=== PATIENT | male | born 1945 | race Hispanic/Latino ===

== ENCOUNTER 2021-02-26 12:44 | Emergency (ER) | payer OTHER, MEDICARE ==
[~2021-02-26] VITALS: Ht 167.6 cm; Wt 101.6 kg
[~2021-02-26 12:44] MED LIST: ASPIRIN325 MG PO; CORDARONE200 MG PO; FISH OIL500 M1 PO; LIPITOR10 MG PO; NITROSTAT0.4 MG SL; OMEPRAZOLE20 MG PO; RENVELA800 MG PO; SODIUM BICARBO650 MG PO; TUMS300 MG PO
[2021-02-26] MEDS ORDERED: TRAMADOL HCL 50 MG TAB PO NR (13:00)
[2021-02-26] MEDS ORDERED: ACETAMINOPHEN-1 EAC3 PO (13:47)
[2021-02-26] MEDS ORDERED: TRAMADOL HCL 50 MG TAB ONE (14:00)
== END 2021-02-26 14:17 | disposition home or self-care (01) ==
LOC: FSED 12:52
DX: M25.561 Pain in right knee (principal); M25.572 Pain in left ankle and joints of left foot; W01.0XXA Fall on same level from slipping, tripping and stumbling without subsequent striking against object, initial encounter
CPT/HCPCS: 99283

== ENCOUNTER 2023-02-03 11:06 | Inpatient (IN) | payer MEDICARE, OTHER ==
[~2023-02-03] VITALS: Ht 167.6 cm; Wt 101.3 kg
[~2023-02-03 11:06] MED LIST changes: +ACETAMINOPHEN-1 EAC3 PO
[2023-02-03 11:35] LABS: BASOPHILS % 0.4 % (0.0-1.0); EOSINOPHILS # (AUTO) 0.1 (0.0-0.4); EOSINOPHILS % 1.4 % (0.0-6.0); HEMOGLOBIN 11.8 g/dL (14.0-18.0); LYMPHOCYTES # (AUTO) 0.8 (1.0-3.2); LYMPHOCYTES % 11.7 % (18.0-39.1); MEAN CORPUSCULAR HEMOGLOBIN 28.9 pg (28-32); MEAN CORPUSCULAR HGB CONC 33.7 g/dL (31-35); MEAN CORPUSCULAR VOLUME 85.8 fL (81-99); MONOCYTES # (AUTO) 0.6 (0.2-0.8); MONOCYTES % 7.6 % (4.4-11.3); NEUTROPHILS # (AUTO) 5.7 (2.1-6.9); NEUTROPHILS % 78.5 % (38.7-80.0); PLATELET COUNT 260 x10e3/uL (140-360); RED BLOOD COUNT 4.08 x10e6/uL (4.3-5.7); RED CELL DISTRIBUTION WIDTH 13.3 % (11.7-14.4)
[2023-02-03 11:56] LABS: ALBUMIN 2.4 g/dL (3.5-5.0); ALBUMIN/GLOBULIN RATIO 0.7 (0.8-2.0); ANION GAP 15.8 mmol/L (8-16); CALCIUM 7.8 mg/dL (8.4-10.2); CREATININE, SERUM 1.24 mg/dL (0.72-1.25)
[2023-02-03 11:59] LABS: POTASSIUM 2.8 mmol/L (3.5-5.1)
[2023-02-03] MEDS ORDERED: MAGNESIUM SULFATE 2GM/50ML 50 ML IV ONE (13:00)
[2023-02-03] MEDS: LACTATED RINGER'S 1,000 ML IV ONE ×2 (13:46→13:56)
[2023-02-03 14:45] VITALS: BP 143/74; PULSE 57; RESP 17; TEMP 98.9; O2SAT 94
[2023-02-03 15:00] VITALS: BP 143/74; PULSE 57; RESP 17; TEMP 98.9; O2SAT 94
[2023-02-03 15:57] VITALS: BP 143/74; PULSE 57; RESP 17; TEMP 98.9; O2SAT 94
[2023-02-03] MEDS: POTASSIUM CHLORIDE 10MEQ/100ML 200 ML IV SCH (16:44)
[2023-02-03] MEDS: SODIUM CHLORIDE 0.9% 1000ML 1,000 ML IV SCH (17:07)
[2023-02-03] MEDS ORDERED: MYCOPHENOLATE250 MG PO (18:35)
[2023-02-03] MEDS ORDERED: VITAMIN D350 MCG (18:35)
[2023-02-03] MEDS ORDERED: NIFEDIPINE ER30 M1 PO (18:35)
[2023-02-03] MEDS ORDERED: METOPROLOL SUCC50 MG PO (18:35)
[2023-02-03] MEDS ORDERED: TACROLIMUS1 MG PO ×2 (18:35)
[2023-02-03] MEDS ORDERED: NOVOLIN R100 UNIT/1 (18:35)
[2023-02-03] MEDS ORDERED: HYDROCHLOROTHIA25 MG (18:35)
[2023-02-03 20:52] VITALS: BP 130/65; PULSE 57; RESP 18; TEMP 97.8; O2SAT 94
[2023-02-03 22:00] VITALS: BP 130/65; PULSE 57; RESP 18; TEMP 97.8; O2SAT 98
[2023-02-03] MEDS: MYCOPHENOLATE MOFETIL 250 MG CAP PO SCH (23:33)
[2023-02-03] MEDS: TACROLIMUS 1 MG CAP PO SCH (23:33)
[2023-02-04] VITALS (8 sets, daily range): BP systolic 130–167; BP diastolic 60–69; PULSE 55–63; RESP 18–24; TEMP 97.4–97.8; O2SAT 94–99
[2023-02-04] MEDS: POTASSIUM CHLORIDE 10MEQ/100ML 100 ML IV SCH ×4 (04:00→09:46)
[2023-02-04] MEDS: POTASSIUM CHLORIDE 10MEQ/100ML 200 ML IV SCH ×2 (04:36→06:55)
[2023-02-04] MEDS: SODIUM CHLORIDE 0.9% 1000ML 1,000 ML IV SCH (04:44)
[2023-02-04] MEDS ORDERED: TACROLIMUS 0.5 MG CAP PO SCH (09:00)
[2023-02-04 09:15] LABS: BASOPHILS % 0.3 % (0.0-1.0); EOSINOPHILS # (AUTO) 0.1 (0.0-0.4); EOSINOPHILS % 1.1 % (0.0-6.0); HEMATOCRIT 33.3 % (38.2-49.6); HEMOGLOBIN 11.2 g/dL (14.0-18.0); LYMPHOCYTES # (AUTO) 0.6 (1.0-3.2); LYMPHOCYTES % 7.6 % (18.0-39.1); MEAN CORPUSCULAR HEMOGLOBIN 28.6 pg (28-32); MEAN CORPUSCULAR HGB CONC 33.6 g/dL (31-35); MEAN CORPUSCULAR VOLUME 84.9 fL (81-99); MONOCYTES # (AUTO) 0.5 (0.2-0.8); MONOCYTES % 7.2 % (4.4-11.3); NEUTROPHILS # (AUTO) 6.3 (2.1-6.9); NEUTROPHILS % 83.3 % (38.7-80.0); PLATELET COUNT 199 x10e3/uL (140-360); RED BLOOD COUNT 3.92 x10e6/uL (4.3-5.7)
[2023-02-04 09:42] LABS: MAGNESIUM 1.8 MG/DL (1.3-2.1); PHOSPHORUS 3.2 MG/DL (2.3-4.7)
[2023-02-04 09:43] LABS: ANION GAP 16.4 mmol/L (8-16); CALCIUM 7.6 mg/dL (8.4-10.2); CREATININE, SERUM 0.94 mg/dL (0.72-1.25); POTASSIUM 3.4 mmol/L (3.5-5.1)
[2023-02-04] MEDS: MYCOPHENOLATE MOFETIL 250 MG CAP PO SCH ×2 (09:45→21:15)
[2023-02-04] MEDS: AMIODARONE HCL 200 MG TAB PO SCH (09:45)
[2023-02-04 10:05] LABS: THYROID STIMULATING HORMONE 0.577 uIU/mL (0.350-4.940)
[2023-02-04] MEDS ORDERED: KCL 20MEQ/.9 SOD CHL 1,000 ML IV ONE (11:00)
[2023-02-04] MEDS: TACROLIMUS 0.5 MG CAP PO SCH (11:39)
[2023-02-04] MEDS: SODIUM BICARBONATE 650 MG TAB PO SCH ×2 (11:39→16:36)
[2023-02-04] MEDS: ACETAMINOPHEN 325 MG TAB PO PRN (21:14)
[2023-02-04] MEDS: TACROLIMUS 1 MG CAP PO SCH (21:15)
[2023-02-05] VITALS (7 sets, daily range): BP systolic 119–171; BP diastolic 48–99; PULSE 58–69; RESP 17–24; TEMP 96–97.8; O2SAT 96–100
[2023-02-05 06:11] LABS: BASOPHILS % 0.1 % (0.0-1.0); EOSINOPHILS # (AUTO) 0.2 (0.0-0.4); EOSINOPHILS % 2.3 % (0.0-6.0); HEMATOCRIT 33.9 % (38.2-49.6); HEMOGLOBIN 11.4 g/dL (14.0-18.0); LYMPHOCYTES # (AUTO) 0.6 (1.0-3.2); LYMPHOCYTES % 8.5 % (18.0-39.1); MEAN CORPUSCULAR HEMOGLOBIN 28.8 pg (28-32); MEAN CORPUSCULAR HGB CONC 33.6 g/dL (31-35); MEAN CORPUSCULAR VOLUME 85.6 fL (81-99); MONOCYTES # (AUTO) 0.6 (0.2-0.8); MONOCYTES % 8.4 % (4.4-11.3); NEUTROPHILS # (AUTO) 5.6 (2.1-6.9); NEUTROPHILS % 80.1 % (38.7-80.0); PLATELET COUNT 212 x10e3/uL (140-360); RED BLOOD COUNT 3.96 x10e6/uL (4.3-5.7); RED CELL DISTRIBUTION WIDTH 13.1 % (11.7-14.4)
[2023-02-05 06:34] LABS: ANION GAP 13.5 mmol/L (8-16); CALCIUM 7.6 mg/dL (8.4-10.2); CREATININE, SERUM 0.87 mg/dL (0.72-1.25); POTASSIUM 3.5 mmol/L (3.5-5.1)
[2023-02-05 07:01] LABS: MAGNESIUM 1.9 MG/DL (1.3-2.1); PHOSPHORUS 2.8 MG/DL (2.3-4.7)
[2023-02-05] MEDS: SODIUM BICARBONATE 650 MG TAB PO SCH ×2 (08:18→17:03)
[2023-02-05] MEDS: TACROLIMUS 0.5 MG CAP PO SCH (08:18)
[2023-02-05] MEDS: MYCOPHENOLATE MOFETIL 250 MG CAP PO SCH ×2 (08:18→20:27)
[2023-02-05] MEDS: AMIODARONE HCL 200 MG TAB PO SCH (08:18)
[2023-02-05] MEDS ORDERED: FUROSEMIDE 20 MG TAB PO ONE (11:30)
[2023-02-05] MEDS ORDERED: POTASSIUM CHLORIDE 20 MEQ TAB CR PO ONE (11:30)
[2023-02-05] MEDS: SODIUM CHLORIDE 1 GM TAB PO SCH ×2 (13:13→20:27)
[2023-02-05] MEDS ORDERED: BENZONATATE 100 MG CAP PO PRN (13:45)
[2023-02-05] MEDS: BENZONATATE 100 MG CAP PO SCH ×2 (14:07→20:27)
[2023-02-05] MEDS: TACROLIMUS 1 MG CAP PO SCH (20:27)
[2023-02-05] MEDS ORDERED: ONDANSETRON HCL INJ 2MG/ML 2ML 2 MG/ML VIAL IV PRN (23:45)
[2023-02-06] MEDS: BUDESONIDE 0.5MG/2 ML NEB INH SCH (06:30)
[2023-02-06 08:15] VITALS: BP 182/71; PULSE 72; RESP 18; TEMP 98.1; O2SAT 97
[2023-02-06] MEDS: SODIUM BICARBONATE 650 MG TAB PO SCH ×2 (09:58→16:00)
[2023-02-06] MEDS: BENZONATATE 100 MG CAP PO SCH ×3 (09:58→21:16)
[2023-02-06] MEDS: SODIUM CHLORIDE 1 GM TAB PO SCH ×2 (09:58→21:16)
[2023-02-06] MEDS: TACROLIMUS 0.5 MG CAP PO SCH (09:58)
[2023-02-06] MEDS: AMIODARONE HCL 200 MG TAB PO SCH (09:58)
[2023-02-06] MEDS: METOPROLOL SUCCINATE 50 MG TAB XL PO SCH (10:59)
[2023-02-06] MEDS: ASPIRIN 81 MG CHEW TAB PO SCH (11:00)
[2023-02-06] MEDS: DOXYCYCLINE HYCLATE TABLET 100 MG TAB PO SCH ×2 (11:00→16:00)
[2023-02-06] MEDS: MYCOPHENOLATE MOFETIL 250 MG CAP PO SCH ×2 (11:00→21:16)
[2023-02-06] MEDS: NIFEDIPINE CR 30 MG TAB PO SCH (11:00)
[2023-02-06] MEDS: METHYLPREDNISOLONE SOD SUCC 40 MG/ML VIAL 1ML IV SCH ×2 (11:01→21:15)
[2023-02-06] MEDS: ATORVASTATIN 40 MG TAB PO SCH (11:01)
[2023-02-06] MEDS: PANTOPRAZOLE SOD 40 MG TABEC PO SCH (11:01)
[2023-02-06 11:41] VITALS: BP 163/68; PULSE 73; RESP 19; TEMP 97.5; O2SAT 98
[2023-02-06] MEDS: ALBUTEROL/IPRATROPIUM 3 ML NEB NEB SCH (13:10)
[2023-02-06 15:49] VITALS: BP 115/59; PULSE 71; RESP 19; TEMP 98; O2SAT 95
[2023-02-06] MEDS: APIXAB 2.5 MG TABLET PO SCH (16:00)
[2023-02-06 20:00] VITALS: BP 144/46; PULSE 64; RESP 18; TEMP 97.5; O2SAT 96
[2023-02-06] MEDS: TACROLIMUS 1 MG CAP PO SCH (21:16)
[2023-02-07] VITALS (11 sets, daily range): BP systolic 98–158; BP diastolic 53–66; PULSE 62–74; RESP 16–22; TEMP 97.8–98.7; O2SAT 95–100
[2023-02-07] MEDS: ALBUTEROL/IPRATROPIUM 3 ML NEB NEB SCH ×4 (02:50→19:30)
[2023-02-07] MEDS: BUDESONIDE 0.5MG/2 ML NEB INH SCH ×2 (07:00→18:59)
[2023-02-07 07:54] LABS: BASOPHILS % 0.2 % (0.0-1.0); HEMATOCRIT 35.4 % (38.2-49.6); HEMOGLOBIN 11.7 g/dL (14.0-18.0); LYMPHOCYTES # (AUTO) 0.4 (1.0-3.2); LYMPHOCYTES % 6.3 % (18.0-39.1); MEAN CORPUSCULAR HEMOGLOBIN 28.9 pg (28-32); MEAN CORPUSCULAR HGB CONC 33.1 g/dL (31-35); MEAN CORPUSCULAR VOLUME 87.4 fL (81-99); MONOCYTES # (AUTO) 0.1 (0.2-0.8); MONOCYTES % 1.8 % (4.4-11.3); NEUTROPHILS % 90.4 % (38.7-80.0); PLATELET COUNT 206 x10e3/uL (140-360); RED BLOOD COUNT 4.05 x10e6/uL (4.3-5.7)
[2023-02-07 08:15] LABS: ANION GAP 13.9 mmol/L (8-16); CALCIUM 7.8 mg/dL (8.4-10.2); CREATININE, SERUM 0.75 mg/dL (0.72-1.25); POTASSIUM 3.9 mmol/L (3.5-5.1)
[2023-02-07] MEDS: ASPIRIN 81 MG CHEW TAB PO SCH (10:13)
[2023-02-07] MEDS: NIFEDIPINE CR 30 MG TAB PO SCH (10:13)
[2023-02-07] MEDS: SODIUM CHLORIDE 1 GM TAB PO SCH ×2 (10:13→20:52)
[2023-02-07] MEDS: BENZONATATE 100 MG CAP PO SCH ×3 (10:14→20:47)
[2023-02-07] MEDS: TACROLIMUS 0.5 MG CAP PO SCH (10:14)
[2023-02-07] MEDS: APIXAB 2.5 MG TABLET PO SCH ×2 (10:14→16:48)
[2023-02-07] MEDS: ATORVASTATIN 40 MG TAB PO SCH (10:14)
[2023-02-07] MEDS: SODIUM BICARBONATE 650 MG TAB PO SCH ×2 (10:14→16:48)
[2023-02-07] MEDS: METOPROLOL SUCCINATE 50 MG TAB XL PO SCH (10:14)
[2023-02-07] MEDS: DOXYCYCLINE HYCLATE TABLET 100 MG TAB PO SCH ×2 (10:15→16:48)
[2023-02-07] MEDS: AMIODARONE HCL 200 MG TAB PO SCH (10:15)
[2023-02-07] MEDS: PANTOPRAZOLE SOD 40 MG TABEC PO SCH (10:15)
[2023-02-07] MEDS: METHYLPREDNISOLONE SOD SUCC 40 MG/ML VIAL 1ML IV SCH ×2 (10:16→20:47)
[2023-02-07 11:16] LABS: LYMPHOCYTES % (MANUAL) 11 % (19-48); MONOCYTES % (MANUAL) 4 % (3.4-9.0); NEUTROPHILS % (MANUAL) 85 % (40-74); PLATELET ESTIMATE ADEQUATE; PLATELET MORPHOLOGY COMMENT NORMAL; RBC MORPHOLOGY COMMENT NORMAL
[2023-02-07] MEDS: MYCOPHENOLATE MOFETIL 250 MG CAP PO SCH ×2 (12:23→20:47)
[2023-02-07] MEDS: TACROLIMUS 1 MG CAP PO SCH (20:47)
[2023-02-08] VITALS (12 sets, daily range): BP systolic 113–135; BP diastolic 52–75; PULSE 62–71; RESP 16–20; TEMP 97–99.1; O2SAT 95–100
[2023-02-08] MEDS: ALBUTEROL/IPRATROPIUM 3 ML NEB NEB SCH ×4 (00:50→19:40)
[2023-02-08] MEDS: BUDESONIDE 0.5MG/2 ML NEB INH SCH ×2 (06:00→19:30)
[2023-02-08] MEDS: APIXAB 2.5 MG TABLET PO SCH ×2 (08:33→16:52)
[2023-02-08] MEDS: ATORVASTATIN 40 MG TAB PO SCH (08:33)
[2023-02-08] MEDS: AMIODARONE HCL 200 MG TAB PO SCH (08:33)
[2023-02-08] MEDS: DOXYCYCLINE HYCLATE TABLET 100 MG TAB PO SCH ×2 (08:33→16:52)
[2023-02-08] MEDS: ASPIRIN 81 MG CHEW TAB PO SCH (08:33)
[2023-02-08] MEDS: MYCOPHENOLATE MOFETIL 250 MG CAP PO SCH ×2 (08:34→21:01)
[2023-02-08] MEDS: TACROLIMUS 0.5 MG CAP PO SCH (08:34)
[2023-02-08] MEDS: PANTOPRAZOLE SOD 40 MG TABEC PO SCH (08:34)
[2023-02-08] MEDS: SODIUM BICARBONATE 650 MG TAB PO SCH ×2 (08:34→16:52)
[2023-02-08] MEDS: BENZONATATE 100 MG CAP PO SCH ×3 (08:34→21:01)
[2023-02-08] MEDS: SODIUM CHLORIDE 1 GM TAB PO SCH ×2 (08:34→21:01)
[2023-02-08] MEDS: METHYLPREDNISOLONE SOD SUCC 40 MG/ML VIAL 1ML IV SCH ×2 (08:35→21:02)
[2023-02-08] MEDS: METOPROLOL SUCCINATE 50 MG TAB XL PO SCH (08:48)
[2023-02-08] MEDS: NIFEDIPINE CR 30 MG TAB PO SCH (08:48)
[2023-02-08] MEDS: TACROLIMUS 1 MG CAP PO SCH (21:01)
[2023-02-09] VITALS (10 sets, daily range): BP systolic 91–140; BP diastolic 40–68; PULSE 68–75; RESP 16–20; TEMP 97.4–98.3; O2SAT 96–98
[2023-02-09] MEDS: ALBUTEROL/IPRATROPIUM 3 ML NEB NEB SCH ×4 (00:15→14:10)
[2023-02-09] MEDS: BUDESONIDE 0.5MG/2 ML NEB INH SCH ×2 (07:08→19:38)
[2023-02-09] MEDS: MYCOPHENOLATE MOFETIL 250 MG CAP PO SCH ×2 (08:31→20:55)
[2023-02-09] MEDS: SODIUM BICARBONATE 650 MG TAB PO SCH ×2 (08:31→17:19)
[2023-02-09] MEDS: TACROLIMUS 0.5 MG CAP PO SCH (08:32)
[2023-02-09] MEDS: AMIODARONE HCL 200 MG TAB PO SCH (08:32)
[2023-02-09] MEDS: DOXYCYCLINE HYCLATE TABLET 100 MG TAB PO SCH ×2 (08:32→17:19)
[2023-02-09] MEDS: SODIUM CHLORIDE 1 GM TAB PO SCH ×2 (08:32→20:55)
[2023-02-09] MEDS: PANTOPRAZOLE SOD 40 MG TABEC PO SCH (08:32)
[2023-02-09] MEDS: ATORVASTATIN 40 MG TAB PO SCH (08:32)
[2023-02-09] MEDS: BENZONATATE 100 MG CAP PO SCH ×3 (08:32→20:55)
[2023-02-09] MEDS: APIXAB 2.5 MG TABLET PO SCH ×2 (08:34→17:19)
[2023-02-09] MEDS: ASPIRIN 81 MG CHEW TAB PO SCH (08:34)
[2023-02-09] MEDS: NIFEDIPINE CR 30 MG TAB PO SCH (08:35)
[2023-02-09] MEDS: METOPROLOL SUCCINATE 50 MG TAB XL PO SCH (08:36)
[2023-02-09 09:15] LABS: BASOPHILS % 0.1 % (0.0-1.0); HEMATOCRIT 32.8 % (38.2-49.6); LYMPHOCYTES # (AUTO) 0.2 (1.0-3.2); LYMPHOCYTES % 2.5 % (18.0-39.1); MEAN CORPUSCULAR HEMOGLOBIN 28.8 pg (28-32); MEAN CORPUSCULAR HGB CONC 33.5 g/dL (31-35); MEAN CORPUSCULAR VOLUME 85.9 fL (81-99); MONOCYTES # (AUTO) 0.5 (0.2-0.8); MONOCYTES % 5.5 % (4.4-11.3); NEUTROPHILS # (AUTO) 8.5 (2.1-6.9); NEUTROPHILS % 91.3 % (38.7-80.0); PLATELET COUNT 225 x10e3/uL (140-360); RED BLOOD COUNT 3.82 x10e6/uL (4.3-5.7); RED CELL DISTRIBUTION WIDTH 13.7 % (11.7-14.4)
[2023-02-09 09:54] LABS: ANION GAP 13.9 mmol/L (8-16); CALCIUM 8.1 mg/dL (8.4-10.2); CREATININE, SERUM 1.28 mg/dL (0.72-1.25); POTASSIUM 3.9 mmol/L (3.5-5.1)
[2023-02-09] MEDS: METHYLPREDNISOLONE SOD SUCC 40 MG/ML VIAL 1ML IV SCH ×2 (11:23→20:56)
[2023-02-09] MEDS: TACROLIMUS 1 MG CAP PO SCH (20:55)
[2023-02-09] MEDS: SODIUM CHLORIDE 0.9% 1000ML 1,000 ML IV SCH (21:05)
[2023-02-10] VITALS (11 sets, daily range): BP systolic 110–130; BP diastolic 52–63; PULSE 63–71; RESP 18–20; TEMP 97.4–98.5; O2SAT 92–99
[2023-02-10] MEDS: ALBUTEROL/IPRATROPIUM 3 ML NEB NEB SCH ×4 (00:40→19:35)
[2023-02-10 05:38] LABS: BASOPHILS % 0.2 % (0.0-1.0); HEMATOCRIT 30.7 % (38.2-49.6); HEMOGLOBIN 10.1 g/dL (14.0-18.0); LYMPHOCYTES # (AUTO) 0.2 (1.0-3.2); LYMPHOCYTES % 2.2 % (18.0-39.1); MEAN CORPUSCULAR HEMOGLOBIN 28.8 pg (28-32); MEAN CORPUSCULAR HGB CONC 32.9 g/dL (31-35); MEAN CORPUSCULAR VOLUME 87.5 fL (81-99); MONOCYTES # (AUTO) 0.4 (0.2-0.8); MONOCYTES % 4.1 % (4.4-11.3); NEUTROPHILS # (AUTO) 8.4 (2.1-6.9); NEUTROPHILS % 92.7 % (38.7-80.0); PLATELET COUNT 198 x10e3/uL (140-360); RED BLOOD COUNT 3.51 x10e6/uL (4.3-5.7); RED CELL DISTRIBUTION WIDTH 13.4 % (11.7-14.4)
[2023-02-10 06:01] LABS: ANION GAP 13.2 mmol/L (8-16); CREATININE, SERUM 1.27 mg/dL (0.72-1.25); POTASSIUM 4.2 mmol/L (3.5-5.1)
[2023-02-10] MEDS: BUDESONIDE 0.5MG/2 ML NEB INH SCH ×2 (07:10→19:35)
[2023-02-10] MEDS: PANTOPRAZOLE SOD 40 MG TABEC PO SCH (08:30)
[2023-02-10] MEDS: MYCOPHENOLATE MOFETIL 250 MG CAP PO SCH ×2 (09:19→21:44)
[2023-02-10] MEDS: ATORVASTATIN 40 MG TAB PO SCH (09:19)
[2023-02-10] MEDS: BENZONATATE 100 MG CAP PO SCH ×3 (09:20→21:43)
[2023-02-10] MEDS: SODIUM BICARBONATE 650 MG TAB PO SCH ×2 (09:20→17:12)
[2023-02-10] MEDS: ASPIRIN 81 MG CHEW TAB PO SCH (09:21)
[2023-02-10] MEDS: NIFEDIPINE CR 30 MG TAB PO SCH (09:21)
[2023-02-10] MEDS: APIXAB 2.5 MG TABLET PO SCH ×2 (09:21→17:12)
[2023-02-10] MEDS: DOXYCYCLINE HYCLATE TABLET 100 MG TAB PO SCH ×2 (09:21→17:12)
[2023-02-10] MEDS: SODIUM CHLORIDE 1 GM TAB PO SCH ×2 (09:21→21:44)
[2023-02-10] MEDS: METOPROLOL SUCCINATE 50 MG TAB XL PO SCH (09:22)
[2023-02-10] MEDS: TACROLIMUS 0.5 MG CAP PO SCH (09:22)
[2023-02-10] MEDS: AMIODARONE HCL 200 MG TAB PO SCH (09:22)
[2023-02-10] MEDS: METHYLPREDNISOLONE SOD SUCC 40 MG/ML VIAL 1ML IV SCH ×2 (09:23→21:44)
[2023-02-10] MEDS: SODIUM CHLORIDE 0.9% 1000ML 1,000 ML IV SCH (09:25)
[2023-02-10] MEDS: TACROLIMUS 1 MG CAP PO SCH (21:44)
[2023-02-11] VITALS (13 sets, daily range): BP systolic 109–133; BP diastolic 50–73; PULSE 59–74; RESP 16–20; TEMP 97.6–98.9; O2SAT 91–100
[2023-02-11] MEDS: ALBUTEROL/IPRATROPIUM 3 ML NEB NEB SCH ×4 (00:25→19:00)
[2023-02-11] MEDS: BUDESONIDE 0.5MG/2 ML NEB INH SCH ×2 (06:10→19:52)
[2023-02-11] MEDS: BENZONATATE 100 MG CAP PO SCH ×3 (09:29→20:57)
[2023-02-11] MEDS: METOPROLOL SUCCINATE 50 MG TAB XL PO SCH (09:29)
[2023-02-11] MEDS: PANTOPRAZOLE SOD 40 MG TABEC PO SCH (09:29)
[2023-02-11] MEDS: MYCOPHENOLATE MOFETIL 250 MG CAP PO SCH ×2 (09:30→20:56)
[2023-02-11] MEDS: SODIUM CHLORIDE 1 GM TAB PO SCH ×2 (09:30→20:56)
[2023-02-11] MEDS: DOXYCYCLINE HYCLATE TABLET 100 MG TAB PO SCH ×2 (09:30→16:05)
[2023-02-11] MEDS: TACROLIMUS 0.5 MG CAP PO SCH (09:30)
[2023-02-11] MEDS: AMIODARONE HCL 200 MG TAB PO SCH (09:31)
[2023-02-11] MEDS: ASPIRIN 81 MG CHEW TAB PO SCH (09:31)
[2023-02-11] MEDS: ATORVASTATIN 40 MG TAB PO SCH (09:31)
[2023-02-11] MEDS: SODIUM BICARBONATE 650 MG TAB PO SCH ×2 (09:31→16:05)
[2023-02-11] MEDS: NIFEDIPINE CR 30 MG TAB PO SCH (09:31)
[2023-02-11] MEDS: APIXAB 2.5 MG TABLET PO SCH ×2 (09:31→16:06)
[2023-02-11] MEDS: METHYLPREDNISOLONE SOD SUCC 40 MG/ML VIAL 1ML IV SCH ×2 (09:32→20:56)
[2023-02-11] MEDS ORDERED: ONDANSETRON HCL 4 MG ORAL DISINTEGRATING TAB PO PRN (15:30)
[2023-02-11] MEDS: TACROLIMUS 1 MG CAP PO SCH (20:56)
[2023-02-12] VITALS (11 sets, daily range): BP systolic 115–151; BP diastolic 55–96; PULSE 57–76; RESP 16–22; TEMP 97.4–98.9; O2SAT 88–100
[2023-02-12] MEDS: ALBUTEROL/IPRATROPIUM 3 ML NEB NEB SCH ×4 (01:35→19:10)
[2023-02-12 05:45] LABS: BASOPHILS % 0.1 % (0.0-1.0); HEMATOCRIT 30.6 % (38.2-49.6); HEMOGLOBIN 9.9 g/dL (14.0-18.0); LYMPHOCYTES # (AUTO) 0.3 (1.0-3.2); LYMPHOCYTES % 2.1 % (18.0-39.1); MEAN CORPUSCULAR HEMOGLOBIN 28.3 pg (28-32); MEAN CORPUSCULAR HGB CONC 32.4 g/dL (31-35); MEAN CORPUSCULAR VOLUME 87.4 fL (81-99); MONOCYTES # (AUTO) 0.5 (0.2-0.8); MONOCYTES % 4.3 % (4.4-11.3); NEUTROPHILS # (AUTO) 10.9 (2.1-6.9); NEUTROPHILS % 92.8 % (38.7-80.0); PLATELET COUNT 192 x10e3/uL (140-360); RED CELL DISTRIBUTION WIDTH 13.2 % (11.7-14.4)
[2023-02-12] MEDS: BUDESONIDE 0.5MG/2 ML NEB INH SCH ×2 (06:00→19:25)
[2023-02-12 06:12] LABS: ANION GAP 11.3 mmol/L (8-16); CALCIUM 8.1 mg/dL (8.4-10.2); CREATININE, SERUM 1.26 mg/dL (0.72-1.25); POTASSIUM 4.3 mmol/L (3.5-5.1)
[2023-02-12 08:36] LABS: LYMPHOCYTES % (MANUAL) 6 % (19-48); NEUTROPHILS % (MANUAL) 94 % (40-74); PLATELET ESTIMATE ADEQUATE; PLATELET MORPHOLOGY COMMENT NORMAL; RBC MORPHOLOGY COMMENT NORMAL
[2023-02-12] MEDS: BENZONATATE 100 MG CAP PO SCH ×3 (09:03→20:28)
[2023-02-12] MEDS: ASPIRIN 81 MG CHEW TAB PO SCH (09:03)
[2023-02-12] MEDS: DOXYCYCLINE HYCLATE TABLET 100 MG TAB PO SCH ×2 (09:03→16:32)
[2023-02-12] MEDS: AMIODARONE HCL 200 MG TAB PO SCH (09:04)
[2023-02-12] MEDS: APIXAB 2.5 MG TABLET PO SCH ×2 (09:04→16:32)
[2023-02-12] MEDS: ATORVASTATIN 40 MG TAB PO SCH (09:04)
[2023-02-12] MEDS: METHYLPREDNISOLONE SOD SUCC 40 MG/ML VIAL 1ML IV SCH ×2 (09:04→20:27)
[2023-02-12] MEDS: SODIUM BICARBONATE 650 MG TAB PO SCH ×2 (09:11→16:33)
[2023-02-12] MEDS: PANTOPRAZOLE SOD 40 MG TABEC PO SCH (09:11)
[2023-02-12] MEDS: NIFEDIPINE CR 30 MG TAB PO SCH (09:12)
[2023-02-12] MEDS: TACROLIMUS 0.5 MG CAP PO SCH (09:12)
[2023-02-12] MEDS: SODIUM CHLORIDE 1 GM TAB PO SCH ×2 (09:12→20:28)
[2023-02-12] MEDS: METOPROLOL SUCCINATE 50 MG TAB XL PO SCH (09:13)
[2023-02-12] MEDS: MYCOPHENOLATE MOFETIL 250 MG CAP PO SCH ×2 (11:22→20:28)
[2023-02-12] MEDS ORDERED: FUROSEMIDE 20 MG TAB PO ONE (14:00)
[2023-02-12] MEDS: TACROLIMUS 1 MG CAP PO SCH (20:28)
[2023-02-13] VITALS (13 sets, daily range): BP systolic 107–136; BP diastolic 55–95; PULSE 58–83; RESP 18–21; TEMP 97.4–99; O2SAT 94–100
[2023-02-13] MEDS: ALBUTEROL/IPRATROPIUM 3 ML NEB NEB SCH ×5 (01:10→23:20)
[2023-02-13] MEDS: BUDESONIDE 0.5MG/2 ML NEB INH SCH ×2 (07:07→18:30)
[2023-02-13] MEDS ORDERED: SODIUM CHLORIDE 1 GM TAB PO SCH (09:00)
[2023-02-13] MEDS: MYCOPHENOLATE MOFETIL 250 MG CAP PO SCH ×2 (09:27→22:25)
[2023-02-13] MEDS: NIFEDIPINE CR 30 MG TAB PO SCH (09:31)
[2023-02-13] MEDS: ASPIRIN 81 MG CHEW TAB PO SCH (09:31)
[2023-02-13] MEDS: METOPROLOL SUCCINATE 50 MG TAB XL PO SCH (09:31)
[2023-02-13] MEDS: APIXAB 2.5 MG TABLET PO SCH (09:32)
[2023-02-13] MEDS: ATORVASTATIN 40 MG TAB PO SCH (09:32)
[2023-02-13] MEDS: TACROLIMUS 0.5 MG CAP PO SCH (09:32)
[2023-02-13] MEDS: BENZONATATE 100 MG CAP PO SCH ×3 (09:32→22:25)
[2023-02-13] MEDS: PANTOPRAZOLE SOD 40 MG TABEC PO SCH (09:32)
[2023-02-13] MEDS: AMIODARONE HCL 200 MG TAB PO SCH (09:32)
[2023-02-13] MEDS: SODIUM BICARBONATE 650 MG TAB PO SCH ×2 (09:32→17:51)
[2023-02-13] MEDS: DOXYCYCLINE HYCLATE TABLET 100 MG TAB PO SCH (09:32)
[2023-02-13] MEDS: SODIUM CHLORIDE 1 GM TAB PO SCH ×2 (09:32→22:26)
[2023-02-13] MEDS: METHYLPREDNISOLONE SOD SUCC 40 MG/ML VIAL 1ML IV SCH (09:33)
[2023-02-13] MEDS: BALSAM PERU/CASTOR OIL 60 GM OINT...G. TP SCH (09:33)
[2023-02-13] MEDS: FUROSEMIDE 20 MG TAB PO SCH (17:48)
[2023-02-13] MEDS: TACROLIMUS 1 MG CAP PO SCH (22:26)
[2023-02-14] VITALS (25 sets, daily range): BP systolic 99–161; BP diastolic 48–85; PULSE 60–106; RESP 16–34; TEMP 97.5–98.7; O2SAT 72–100
[2023-02-14] MEDS: ALBUTEROL/IPRATROPIUM 3 ML NEB NEB SCH ×3 (07:08→19:05)
[2023-02-14] MEDS: BUDESONIDE 0.5MG/2 ML NEB INH SCH ×2 (07:08→19:20)
[2023-02-14] MEDS: NIFEDIPINE CR 30 MG TAB PO SCH (09:00)
[2023-02-14] MEDS: METOPROLOL SUCCINATE 50 MG TAB XL PO SCH (09:00)
[2023-02-14] MEDS: SODIUM BICARBONATE 650 MG TAB PO SCH ×2 (09:34→16:02)
[2023-02-14] MEDS: MYCOPHENOLATE MOFETIL 250 MG CAP PO SCH ×2 (09:34→20:41)
[2023-02-14] MEDS: METHYLPREDNISOLONE SOD SUCC 40 MG/ML VIAL 1ML IV SCH (09:34)
[2023-02-14] MEDS: AMIODARONE HCL 200 MG TAB PO SCH (09:34)
[2023-02-14] MEDS: PANTOPRAZOLE SOD 40 MG TABEC PO SCH (09:34)
[2023-02-14] MEDS: TACROLIMUS 0.5 MG CAP PO SCH (09:36)
[2023-02-14] MEDS: BENZONATATE 100 MG CAP PO SCH ×3 (09:36→20:41)
[2023-02-14] MEDS: ASPIRIN 81 MG CHEW TAB PO SCH (09:36)
[2023-02-14] MEDS: SODIUM CHLORIDE 1 GM TAB PO SCH ×3 (09:36→20:50)
[2023-02-14] MEDS: FUROSEMIDE 20 MG TAB PO SCH (09:40)
[2023-02-14] MEDS: ATORVASTATIN 40 MG TAB PO SCH (09:40)
[2023-02-14] MEDS: BALSAM PERU/CASTOR OIL 60 GM OINT...G. TP SCH (09:41)
[2023-02-14] MEDS: ALBUTEROL/IPRATROPIUM 3 ML NEB NEB PRN (10:50)
[2023-02-14] MEDS ORDERED: FUROSEMIDE INJ 10 MG/ML 4 ML VIAL IV ONE (11:30)
[2023-02-14 12:28] LABS: BASOPHILS % 0.2 % (0.0-1.0); HEMATOCRIT 32.9 % (38.2-49.6); HEMOGLOBIN 10.7 g/dL (14.0-18.0); LYMPHOCYTES # (AUTO) 0.5 (1.0-3.2); LYMPHOCYTES % 2.4 % (18.0-39.1); MEAN CORPUSCULAR HEMOGLOBIN 28.5 pg (28-32); MEAN CORPUSCULAR HGB CONC 32.5 g/dL (31-35); MEAN CORPUSCULAR VOLUME 87.5 fL (81-99); MONOCYTES # (AUTO) 1.1 (0.2-0.8); NEUTROPHILS # (AUTO) 16.9 (2.1-6.9); NEUTROPHILS % 90.2 % (38.7-80.0); PLATELET COUNT 181 x10e3/uL (140-360); RED BLOOD COUNT 3.76 x10e6/uL (4.3-5.7); RED CELL DISTRIBUTION WIDTH 13.8 % (11.7-14.4)
[2023-02-14 13:46] LABS: ANION GAP 14.8 mmol/L (8-16); CALCIUM 8.6 mg/dL (8.4-10.2); POTASSIUM 4.8 mmol/L (3.5-5.1)
[2023-02-14 14:03] LABS: CREATININE, SERUM 1.47 mg/dL (0.72-1.25)
[2023-02-14 15:58] LABS: ABG HCO3 27 mmol/L (22-26); ABG PCO2 44 mmHg (35-45); ABG PH 7.39 (7.35-7.45); ABG PO2 286 mmHg (80-105); ABG TCO2 28
[2023-02-14] MEDS: TACROLIMUS 1 MG CAP PO SCH (20:41)
[2023-02-15] VITALS (31 sets, daily range): BP systolic 92–142; BP diastolic 45–115; PULSE 63–73; RESP 15–35; TEMP 96.7–98.8; O2SAT 94–100
[2023-02-15] MEDS: ALBUTEROL/IPRATROPIUM 3 ML NEB NEB SCH ×4 (01:20→19:10)
[2023-02-15 06:41] LABS: BASOPHILS % 0.2 % (0.0-1.0); EOSINOPHILS % 0.1 % (0.0-6.0); HEMATOCRIT 30.5 % (38.2-49.6); HEMOGLOBIN 9.9 g/dL (14.0-18.0); LYMPHOCYTES # (AUTO) 0.3 (1.0-3.2); LYMPHOCYTES % 2.6 % (18.0-39.1); MEAN CORPUSCULAR HEMOGLOBIN 28.5 pg (28-32); MEAN CORPUSCULAR HGB CONC 32.5 g/dL (31-35); MEAN CORPUSCULAR VOLUME 87.9 fL (81-99); MONOCYTES # (AUTO) 0.7 (0.2-0.8); MONOCYTES % 5.5 % (4.4-11.3); NEUTROPHILS # (AUTO) 10.6 (2.1-6.9); NEUTROPHILS % 90.4 % (38.7-80.0); PLATELET COUNT 108 x10e3/uL (140-360); RED BLOOD COUNT 3.47 x10e6/uL (4.3-5.7); RED CELL DISTRIBUTION WIDTH 13.8 % (11.7-14.4)
[2023-02-15 07:17] LABS: ALBUMIN/GLOBULIN RATIO 0.8 (0.8-2.0); ANION GAP 12.4 mmol/L (8-16); CALCIUM 8.1 mg/dL (8.4-10.2); CREATININE, SERUM 1.3 mg/dL (0.72-1.25); POTASSIUM 4.4 mmol/L (3.5-5.1)
[2023-02-15] MEDS: BUDESONIDE 0.5MG/2 ML NEB INH SCH ×2 (07:37→19:25)
[2023-02-15] MEDS: ACETAMINOPHEN 325 MG TAB PO PRN (07:40)
[2023-02-15] MEDS: ATORVASTATIN 40 MG TAB PO SCH (08:19)
[2023-02-15] MEDS: AMIODARONE HCL 200 MG TAB PO SCH (08:19)
[2023-02-15] MEDS: NIFEDIPINE CR 30 MG TAB PO SCH (08:19)
[2023-02-15] MEDS: MYCOPHENOLATE MOFETIL 250 MG CAP PO SCH ×2 (08:19→20:04)
[2023-02-15] MEDS: FUROSEMIDE 20 MG TAB PO SCH (08:19)
[2023-02-15] MEDS: BENZONATATE 100 MG CAP PO SCH ×3 (08:20→20:05)
[2023-02-15] MEDS: PANTOPRAZOLE SOD 40 MG TABEC PO SCH (08:20)
[2023-02-15] MEDS: METOPROLOL SUCCINATE 50 MG TAB XL PO SCH (08:20)
[2023-02-15] MEDS: ASPIRIN 81 MG CHEW TAB PO SCH (08:20)
[2023-02-15] MEDS: TACROLIMUS 0.5 MG CAP PO SCH ×2 (08:20→20:04)
[2023-02-15] MEDS: METHYLPREDNISOLONE SOD SUCC 40 MG/ML VIAL 1ML IV SCH (08:26)
[2023-02-15] MEDS: SODIUM BICARBONATE 650 MG TAB PO SCH ×2 (08:35→15:51)
[2023-02-15] MEDS: SODIUM CHLORIDE 1 GM TAB PO SCH ×3 (08:36→20:23)
[2023-02-15] MEDS: BALSAM PERU/CASTOR OIL 60 GM OINT...G. TP SCH (09:00)
[2023-02-15] MEDS: HEPARIN SOD (PORCINE) 5,000 UNIT/ML VIAL SC SCH (20:07)
[2023-02-15] MEDS: TACROLIMUS 1 MG CAP PO SCH (20:42)
[2023-02-16] VITALS (58 sets, daily range): BP systolic 76–119; BP diastolic 55–78; PULSE 38–70; RESP 14–26; TEMP 97.5–98; O2SAT 87–100
[2023-02-16] MEDS: ALBUTEROL/IPRATROPIUM 3 ML NEB NEB SCH ×4 (00:10→19:25)
[2023-02-16] MEDS: BUDESONIDE 0.5MG/2 ML NEB INH SCH ×2 (08:02→19:40)
[2023-02-16] MEDS: METOPROLOL SUCCINATE 50 MG TAB XL PO SCH (09:00)
[2023-02-16] MEDS ORDERED: PREDNISONE 20 MG TAB PO SCH (09:00)
[2023-02-16] MEDS: SODIUM BICARBONATE 650 MG TAB PO SCH ×2 (09:33→18:08)
[2023-02-16] MEDS: ASPIRIN 81 MG CHEW TAB PO SCH (09:33)
[2023-02-16] MEDS: MYCOPHENOLATE MOFETIL 250 MG CAP PO SCH ×2 (09:33→21:10)
[2023-02-16] MEDS: AMIODARONE HCL 200 MG TAB PO SCH (09:34)
[2023-02-16] MEDS: TACROLIMUS 0.5 MG CAP PO SCH (09:34)
[2023-02-16] MEDS: FUROSEMIDE 20 MG TAB PO SCH (09:34)
[2023-02-16] MEDS: SODIUM CHLORIDE 1 GM TAB PO SCH ×2 (09:34→21:00)
[2023-02-16] MEDS: ATORVASTATIN 40 MG TAB PO SCH (09:34)
[2023-02-16] MEDS: HEPARIN SOD (PORCINE) 5,000 UNIT/ML VIAL SC SCH ×2 (09:39→21:09)
[2023-02-16] MEDS: BENZONATATE 100 MG CAP PO SCH ×3 (09:54→21:10)
[2023-02-16] MEDS ORDERED: DEXTROSE 50% SYRINGE 50 ML IV PRN (17:00)
[2023-02-16] MEDS ORDERED: ALBUMIN 5% 0.05 GM/ML BTL IV ONE (17:30)
[2023-02-16] MEDS ORDERED: FUROSEMIDE INJ 10 MG/ML 4 ML VIAL IV ONE (18:00)
[2023-02-16 18:09] LABS: ALBUMIN 1.8 g/dL (3.5-5.0); ALBUMIN/GLOBULIN RATIO 0.6 (0.8-2.0); ANION GAP 12.9 mmol/L (8-16); CALCIUM 8.3 mg/dL (8.4-10.2); CREATININE, SERUM 1.38 mg/dL (0.72-1.25); POTASSIUM 4.9 mmol/L (3.5-5.1)
[2023-02-16 18:45] LABS: BASOPHILS % 0.1 % (0.0-1.0); HEMATOCRIT 26.2 % (38.2-49.6); HEMOGLOBIN 8.8 g/dL (14.0-18.0); LYMPHOCYTES # (AUTO) 0.2 (1.0-3.2); LYMPHOCYTES % 1.5 % (18.0-39.1); MEAN CORPUSCULAR HEMOGLOBIN 28.8 pg (28-32); MEAN CORPUSCULAR HGB CONC 33.6 g/dL (31-35); MEAN CORPUSCULAR VOLUME 85.6 fL (81-99); MONOCYTES # (AUTO) 0.6 (0.2-0.8); MONOCYTES % 4.4 % (4.4-11.3); NEUTROPHILS # (AUTO) 11.5 (2.1-6.9); NEUTROPHILS % 93.2 % (38.7-80.0); RED BLOOD COUNT 3.06 x10e6/uL (4.3-5.7)
[2023-02-16 18:48] LABS: PLATELET COUNT 81 x10e3/uL (140-360)
[2023-02-16] MEDS: INSULIN LISPRO 100 UNIT/1 ML 3ML VIAL SQ SCH (21:00)
[2023-02-16] MEDS: TACROLIMUS 1 MG CAP PO SCH (21:10)
[2023-02-16 22:35] LABS: COLOR,URINE AMBER (YELLOW)
[2023-02-16 22:36] LABS: CLARITY,URINE CLOUDY (CLEAR); KETONES,URINE NEGATIVE (NEGATIVE); LEUKOCYTE ESTERASE ,URINE NEGATIVE (NEGATIVE); NITRITE,URINE NEGATIVE (NEGATIVE); PROTEIN,URINE DIPSTICK >=300 (NEGATIVE); URINE UROBILINOGEN 1 mg/dL (0.2 - 1)
[2023-02-16 22:49] LABS: BACTERIA,URINE MANY /HPF; EPITHELIAL CELLS,URINE FEW /LPF; RBC,URINE >50 /HPF (0-5); WBC,URINE (MAN) 21-50 /HPF (0-5)
[2023-02-17] VITALS (69 sets, daily range): BP systolic 69–131; BP diastolic 21–119; PULSE 52–66; RESP 12–30; TEMP 96.6–97.7; O2SAT 92–100
[2023-02-17] MEDS: ONDANSETRON HCL INJ 2MG/ML 2ML 2 MG/ML VIAL IV PRN ×2 (01:07→11:36)
[2023-02-17] MEDS: ALBUTEROL/IPRATROPIUM 3 ML NEB NEB SCH ×4 (01:50→19:02)
[2023-02-17 06:51] LABS: BASOPHILS % 0.3 % (0.0-1.0); HEMATOCRIT 27.5 % (38.2-49.6); LYMPHOCYTES # (AUTO) 0.2 (1.0-3.2); LYMPHOCYTES % 2.1 % (18.0-39.1); MEAN CORPUSCULAR HEMOGLOBIN 28.6 pg (28-32); MEAN CORPUSCULAR HGB CONC 32.7 g/dL (31-35); MEAN CORPUSCULAR VOLUME 87.3 fL (81-99); MONOCYTES # (AUTO) 0.5 (0.2-0.8); MONOCYTES % 4.7 % (4.4-11.3); NEUTROPHILS % 92.1 % (38.7-80.0); PLATELET COUNT 76 x10e3/uL (140-360); RED BLOOD COUNT 3.15 x10e6/uL (4.3-5.7); RED CELL DISTRIBUTION WIDTH 13.9 % (11.7-14.4)
[2023-02-17] MEDS: BUDESONIDE 0.5MG/2 ML NEB INH SCH ×2 (06:55→19:17)
[2023-02-17 07:19] LABS: ALBUMIN 1.9 g/dL (3.5-5.0); ALBUMIN/GLOBULIN RATIO 0.7 (0.8-2.0); ANION GAP 14.8 mmol/L (8-16); CALCIUM 8.1 mg/dL (8.4-10.2); CREATININE, SERUM 1.44 mg/dL (0.72-1.25); POTASSIUM 4.8 mmol/L (3.5-5.1)
[2023-02-17] MEDS: INSULIN LISPRO 100 UNIT/1 ML 3ML VIAL SQ SCH ×4 (07:30→21:00)
[2023-02-17 08:09] LABS: LYMPHOCYTES % (MANUAL) 4 % (19-48); MONOCYTES % (MANUAL) 2 % (3.4-9.0); NEUTROPHILS % (MANUAL) 94 % (40-74)
[2023-02-17 08:10] LABS: PLATELET ESTIMATE MODERATELY DECREASED; PLATELET MORPHOLOGY COMMENT NORMAL; RBC MORPHOLOGY COMMENT NORMAL
[2023-02-17] MEDS: MIDODRINE HCL 5 MG TABLET PO SCH ×3 (09:00→17:38)
[2023-02-17] MEDS ORDERED: ALBUMIN 5% 0.05 GM/ML BTL IV ONE (09:00)
[2023-02-17] MEDS: SODIUM CHLORIDE 1 GM TAB PO SCH ×2 (09:00→20:38)
[2023-02-17] MEDS ORDERED: BUMETANIDE INJ 0.25MG/ML 4ML VIAL IV ONE (09:30)
[2023-02-17] MEDS ORDERED: METRONIDAZOLE 500MG/NS 100ML 100 ML IV SCH (09:30)
[2023-02-17] MEDS: SODIUM BICARBONATE 650 MG TAB PO SCH ×2 (11:32→17:38)
[2023-02-17] MEDS: TACROLIMUS 0.5 MG CAP PO SCH (11:32)
[2023-02-17] MEDS: BENZONATATE 100 MG CAP PO SCH ×3 (11:32→20:38)
[2023-02-17] MEDS: MYCOPHENOLATE MOFETIL 250 MG CAP PO SCH ×2 (11:33→20:37)
[2023-02-17] MEDS: MUPIROCIN 2% OINT 22 GM TUBE TOP SCH ×2 (11:34→21:19)
[2023-02-17] MEDS: AMIODARONE HCL 200 MG TAB PO SCH (11:34)
[2023-02-17] MEDS: METHYLPREDNISOLONE SOD SUCC 125 MG/2ML VIAL IV SCH ×2 (11:35→20:37)
[2023-02-17] MEDS: BUMETANIDE 10 MG in SODIUM CHLORIDE 0.9% 60 ML IV SCH ×2 (11:37→21:23)
[2023-02-17] MEDS ORDERED: FUROSEMIDE INJ 10 MG/ML 4 ML VIAL IV ONE (19:00)
[2023-02-17 19:59] LABS: ABG HCO3 27 mmol/L (22-26); ABG PCO2 44 mmHg (35-45); ABG PH 7.38 (7.35-7.45); ABG PO2 101 mmHg (80-105); ABG TCO2 28
[2023-02-17] MEDS: TACROLIMUS 1 MG CAP PO SCH ×2 (20:37→20:48)
[2023-02-18] VITALS (63 sets, daily range): BP systolic 90–127; BP diastolic 48–73; PULSE 63–88; RESP 15–42; TEMP 97–97.3; O2SAT 93–100
[2023-02-18] MEDS: ACETAMINOPHEN 325 MG TAB PO PRN ×3 (00:13→17:13)
[2023-02-18] MEDS: ONDANSETRON HCL INJ 2MG/ML 2ML 2 MG/ML VIAL IV PRN (00:51)
[2023-02-18] MEDS: ALBUTEROL/IPRATROPIUM 3 ML NEB NEB SCH ×4 (01:45→19:02)
[2023-02-18 07:16] LABS: BASOPHILS % 0.2 % (0.0-1.0); HEMATOCRIT 26.7 % (38.2-49.6); LYMPHOCYTES # (AUTO) 0.1 (1.0-3.2); MEAN CORPUSCULAR HEMOGLOBIN 28.2 pg (28-32); MEAN CORPUSCULAR HGB CONC 33.7 g/dL (31-35); MONOCYTES # (AUTO) 0.3 (0.2-0.8); MONOCYTES % 2.5 % (4.4-11.3); NEUTROPHILS # (AUTO) 12.4 (2.1-6.9); NEUTROPHILS % 95.9 % (38.7-80.0); PLATELET COUNT 80 x10e3/uL (140-360); RED BLOOD COUNT 3.19 x10e6/uL (4.3-5.7)
[2023-02-18 07:24] LABS: MEAN CORPUSCULAR VOLUME 83.7 fL (81-99)
[2023-02-18] MEDS: INSULIN LISPRO 100 UNIT/1 ML 3ML VIAL SQ SCH ×4 (07:30→21:00)
[2023-02-18 07:47] LABS: ALBUMIN 1.8 g/dL (3.5-5.0); ALBUMIN/GLOBULIN RATIO 0.6 (0.8-2.0); CREATININE, SERUM 1.47 mg/dL (0.72-1.25)
[2023-02-18] MEDS: BUDESONIDE 0.5MG/2 ML NEB INH SCH ×2 (07:47→19:02)
[2023-02-18] MEDS ORDERED: LIDOCAINE 4% PATCH TP SCH (09:00)
[2023-02-18] MEDS ORDERED: METOPROLOL SUCCINATE 50 MG TAB XL PO SCH (09:00)
[2023-02-18] MEDS: BUMETANIDE 10 MG in SODIUM CHLORIDE 0.9% 60 ML IV SCH (09:15)
[2023-02-18] MEDS: METHYLPREDNISOLONE SOD SUCC 125 MG/2ML VIAL IV SCH ×2 (09:16→21:21)
[2023-02-18] MEDS: MIDODRINE HCL 5 MG TABLET PO SCH ×3 (09:16→16:09)
[2023-02-18] MEDS: SODIUM BICARBONATE 650 MG TAB PO SCH ×2 (09:17→17:12)
[2023-02-18] MEDS: SODIUM CHLORIDE 1 GM TAB PO SCH ×2 (09:17→21:00)
[2023-02-18] MEDS: TACROLIMUS 0.5 MG CAP PO SCH (09:17)
[2023-02-18] MEDS: AMIODARONE HCL 200 MG TAB PO SCH (09:18)
[2023-02-18] MEDS: BENZONATATE 100 MG CAP PO SCH ×3 (09:19→21:00)
[2023-02-18] MEDS: ALBUTEROL/IPRATROPIUM 3 ML NEB NEB PRN (10:25)
[2023-02-18] MEDS: MUPIROCIN 2% OINT 22 GM TUBE TOP SCH ×2 (11:24→21:00)
[2023-02-18] MEDS: MYCOPHENOLATE MOFETIL 250 MG CAP PO SCH ×2 (11:24→21:00)
[2023-02-18] MEDS ORDERED: FUROSEMIDE INJ 10 MG/ML 4 ML VIAL IV ONE (12:00)
[2023-02-18] MEDS: FUROSEMIDE INJ 100 MG in SODIUM CHLORIDE 0.9% 90 ML IV SCH ×2 (16:09→21:22)
[2023-02-18] MEDS: LORAZEPAM INJ 2 MG/ML VIAL IV PRN (20:53)
[2023-02-18] MEDS: Morphine 2mg Syringe 2 MG/ML SYR IV PRN (20:54)
[2023-02-18] MEDS: TACROLIMUS 1 MG CAP PO SCH (21:00)
[2023-02-19] VITALS (31 sets, daily range): BP systolic 0–123; BP diastolic 0–70; PULSE 0–87; RESP 0–35; TEMP 97.4–97.5; O2SAT 0–96
[2023-02-19] MEDS: ALBUTEROL/IPRATROPIUM 3 ML NEB NEB SCH ×2 (01:15→08:13)
[2023-02-19] MEDS: LORAZEPAM INJ 2 MG/ML VIAL IV PRN (01:42)
[2023-02-19] MEDS: Morphine 2mg Syringe 2 MG/ML SYR IV PRN ×2 (01:43→08:52)
[2023-02-19] MEDS: FUROSEMIDE INJ 100 MG in SODIUM CHLORIDE 0.9% 90 ML IV SCH ×2 (02:31→08:55)
[2023-02-19 05:46] LABS: ALBUMIN 1.7 g/dL (3.5-5.0); ALBUMIN/GLOBULIN RATIO 0.6 (0.8-2.0); ANION GAP 16.3 mmol/L (8-16); CALCIUM 7.7 mg/dL (8.4-10.2); CREATININE, SERUM 1.96 mg/dL (0.72-1.25); POTASSIUM 5.3 mmol/L (3.5-5.1)
[2023-02-19] MEDS: BUDESONIDE 0.5MG/2 ML NEB INH SCH (08:13)
[2023-02-19] MEDS ORDERED: METOPROLOL SUCCINATE 25 MG TAB XL PO SCH (09:00)
[2023-02-19] MEDS ORDERED: LORAZEPAM INJ 2 MG/ML VIAL IV PRN (09:15)
[2023-02-19] MEDS ORDERED: Morphine 4mg INJECTION 4 MG/ML INJ IV PRN (09:15)
[2023-02-19] MEDS: Morphine 4mg INJECTION 4 MG/ML INJ IV SCH ×2 (09:15→09:59)
[2023-02-19] MEDS: LORAZEPAM INJ 2 MG/ML VIAL IV SCH ×2 (09:15→09:58)
[2023-02-19] MEDS ORDERED: METOCLOPRAMIDE HCL 10 MG/2ML VIAL IV SCH (12:00)
== END 2023-02-19 13:39 | disposition expired | DRG 177 ==
LOC: ER 11:14 → ERHOLD 12:48 → MED/SURG2 14:42 → ICU 02-14 13:23
PROVIDERS: ADMIT Internal Medicine; ATTEND Internal Medicine
PROC: 5A09357 Assistance with Respiratory Ventilation, Less than 24 Consecutive Hours, Continuous Positive Airway Pressure (ICD-10-PCS; principal; 2023-02-03)
PROC: 8E0ZXY6 Isolation (ICD-10-PCS; 2023-02-03)
PROC: 02H633Z Insertion of Infusion Device into Right Atrium, Percutaneous Approach (ICD-10-PCS; 2023-02-17)
DX: U07.1 COVID-19 (principal); I50.31 Acute diastolic (congestive) heart failure; J12.82 Pneumonia due to coronavirus disease 2019; J96.01 Acute respiratory failure with hypoxia; N18.6 End stage renal disease; Z94.0 Kidney transplant status; D84.9 Immunodeficiency, unspecified; N17.9 Acute kidney failure, unspecified; E22.2 Syndrome of inappropriate secretion of antidiuretic hormone; J81.1 Chronic pulmonary edema; I69.351 Hemiplegia and hemiparesis following cerebral infarction affecting right dominant side; N39.0 Urinary tract infection, site not specified; I13.2 Hypertensive heart and chronic kidney disease with heart failure and with stage 5 chronic kidney disease, or end stage renal disease; Z16.12 Extended spectrum beta lactamase (ESBL) resistance; E66.01 Morbid (severe) obesity due to excess calories; D63.1 Anemia in chronic kidney disease; R29.6 Repeated falls; H93.8X2 Other specified disorders of left ear; E87.6 Hypokalemia; I25.10 Atherosclerotic heart disease of native coronary artery without angina pectoris; E11.22 Type 2 diabetes mellitus with diabetic chronic kidney disease; B96.1 Klebsiella pneumoniae [K. pneumoniae] as the cause of diseases classified elsewhere; R33.9 Retention of urine, unspecified; R31.0 Gross hematuria; D69.6 Thrombocytopenia, unspecified; E83.51 Hypocalcemia; Z68.36 Body mass index [BMI] 36.0-36.9, adult; I48.0 Paroxysmal atrial fibrillation; Z66 Do not resuscitate; Z95.1 Presence of aortocoronary bypass graft; Z87.440 Personal history of urinary (tract) infections; Z95.5 Presence of coronary angioplasty implant and graft
CPT/HCPCS: 36415; 36556; 36600; 51700; 70450; 71045; 71250; 72125; 74018; 74176; 74470; 76705; 76770; 76937; 77001; 80048; 80053; 81001; 82550; 82805; 82948; 83735; 83880; 84100; 84443; 84484; 85025; 87040; 87086; 87186; 93005; 93306; 94640; 94660; 94799; 96360; 96361; 99252; 99285; C1769; J0696; J1644; J1940; J2060; J2185; J2270; J2405; J2920; J2930; J3475; J3480; J7030; J7050; J7507; J7512; Q0162